=== PATIENT | female | born 1965 | race Caucasian/White ===

== ENCOUNTER 2016-08-22 14:58 | Emergency (ER) | payer MEDICAID ==
[~2016-08-22] VITALS: Ht 157.5 cm; Wt 84.5 kg
[2016-08-22 15:16] VITALS: BP 130/60
--- NOTE | 2016-08-22 18:25 | NUR ---
Patient ambulated to bed 4.
--- NOTE | 2016-08-22 18:26 | NUR ---
PATIENT PRESENTS TO ED WITH C/O LEFT FLANK PAIN RADIATING UP TO LEFT FLANK X 2 WKS CRAMPING TYPE PAIN-- TAKING IBUPROFEN BUT PAIN WORSENING---DENIES DYSURIA-AMBULATORY WITH A SLOW STEADY GAIT.HX---ANEMIA DENIES N/V/D; SKIN IS PINK/WARM/DRY; AAOX4 WITH EVEN AND STEADY GAIT; LUNGS CLEAR BL; HR EVEN AND REGULAR; PT DENIES ANY FEVER, CP, SOB, OR COUGH AT THIS TIME; PATIENT STATES PAIN OF 7/10 AT THIS TIME; PATIENT POSITIONED FOR COMFORT; HOB ELEVATED; BEDRAILS UP X2; BED DOWN. ER MD MADE AWARE OF PT STATUS.
--- NOTE | 2016-08-22 18:30 | NUR ---
PT CRISTOBAL, ONGOING WITH HER PERIODS AT THIS TIME.
--- NOTE | 2016-08-22 18:39 | NUR ---
DR. MCGEE AT BEDSIDE
[2016-08-22] MEDS ORDERED: KETOROLAC 60 MG/2 ML VIAL IM ONE (18:45)
--- NOTE | 2016-08-22 19:09 | NUR ---
REPORT GIVEN TO CLARA
--- NOTE | 2016-08-22 19:10 | NUR ---
RECEIVED REPORT FROM GREYSON EDOUARD. PT IS RESTING, NO SIGNS OF DISTRESS ON BED. PT DENIES ANY PAIN AT THIS TIME.
[2016-08-22 19:45] VITALS: BP 116/83
--- NOTE | 2016-08-22 19:45 | NUR ---
Patient discharged with v/s stable. Written and verbal after care instructions given and explained. Patient alert, oriented and verbalized understanding of instructions. Ambulatory with steady gait. All questions addressed prior to discharge. ID band removed. Patient advised to follow up with PMD. Rx of TRAMADOL HYDROCHLORIDE 50MG TAB 1 TAB EVERY 6 HOURS BY MOUTH NEEDED given. Patient educated on indication of medication including possible reaction and side effects. Opportunity to ask questions provided and answered.
== END 2016-08-22 19:45 | disposition home or self-care (01) ==
LOC: MED 14:58
DX: S39.012A Strain of muscle, fascia and tendon of lower back, initial encounter (principal); S29.012A Strain of muscle and tendon of back wall of thorax, initial encounter; R03.0 Elevated blood-pressure reading, without diagnosis of hypertension; D64.9 Anemia, unspecified; X58.XXXA Exposure to other specified factors, initial encounter; Y93.89 Activity, other specified; Y92.89 Other specified places as the place of occurrence of the external cause; Y99.8 Other external cause status
CPT/HCPCS: 74176; 81002; 81025; 96372; 99284; J1885

== ENCOUNTER 2017-03-01 18:52 | Emergency (ER) | payer MEDICAID ==
[~2017-03-01] VITALS: Ht 157.5 cm; Wt 86.2 kg
[2017-03-01 18:58] VITALS: BP 133/72
--- NOTE | 2017-03-01 20:46 | NUR ---
PT TAKEN TO BED 8.
--- NOTE | 2017-03-01 20:50 | NUR ---
51/F CAME IN W C/O 11/13 SORE THROAT, ACUTE ONSET X LAST NIGHT. PT REPORTS SHE HAD RUNNY NOSE, WATERY EYES, ITCHY THROAT YESTERDAY AND TOOK KINZA-D OTC WITH MINIMAL RELIEF OF SYMPTOMS. DENIES N/V/D, FEVER. NO RESPIRATORY DISTRESS NOTED AT THIS TIME, 18RR EVEN AND UNLABORED, LUNG SOUNDS CBTA. HX: ANEMIA, NO RX.
--- NOTE | 2017-03-01 21:31 | NUR ---
Patient being evaluated by Dr. Sheldon at bedside.
[2017-03-01] MEDS ORDERED: PENICILLIN G BENZATHINE L-A 0.6 MU/ML SYR IM ONE (21:35)
[2017-03-01] MEDS ORDERED: KETOROLAC 60 MG/2 ML VIAL IM ONE (21:35)
[2017-03-01 22:29] VITALS: BP 131/80
--- NOTE | 2017-03-01 22:30 | NUR ---
Patient discharged with v/s stable. Written and verbal after care instructions given and explained. Patient alert, oriented and verbalized understanding of instructions. Ambulatory with steady gait. All questions addressed prior to discharge. ID band removed. Patient advised to follow up with PMD. Rx of MOTRIN 800MG ONE TAB 3 TIMES A DAY, PREDNISONE 20MG, 3 TABS ONCE A DAY (IN THE AM)PO X 5DAYS given. Patient educated on indication of medication including possible reaction and side effects. Opportunity to ask questions provided and answered.
== END 2017-03-01 22:30 | disposition home or self-care (01) ==
LOC: MED 18:52
DX: J02.9 Acute pharyngitis, unspecified (principal)
CPT/HCPCS: 96372; 99284; J0561; J1885

== ENCOUNTER 2018-11-08 10:37 | Emergency (ER) | payer MEDICAID ==
[~2018-11-08] VITALS: Ht 165.1 cm; Wt 84.4 kg
[2018-11-08 10:44] VITALS: BP 128/91
--- NOTE | 2018-11-08 10:49 | NUR ---
PT AMB TO BED 1 WITH STEADY GAIT
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
[2018-11-08] MEDS ORDERED: IBUPROFEN 800 MG TAB PO ONE (12:00)
[2018-11-08 13:13] VITALS: BP 119/76
== END 2018-11-08 13:12 | disposition home or self-care (01) ==
LOC: MED 10:37
DX: S63.613A Unspecified sprain of left middle finger, initial encounter (principal); M77.12 Lateral epicondylitis, left elbow; Z98.890 Other specified postprocedural states; X58.XXXA Exposure to other specified factors, initial encounter; Y93.89 Activity, other specified; Y92.89 Other specified places as the place of occurrence of the external cause; Y99.8 Other external cause status
CPT/HCPCS: 73080; 73130; 99283

== ENCOUNTER 2019-02-10 13:35 | Emergency (ER) | payer MEDICAID ==
[~2019-02-10] VITALS: Ht 152.4 cm; Wt 86.2 kg
[2019-02-10 13:43] VITALS: BP 142/80
--- NOTE | 2019-02-10 14:10 | NUR ---
C/O PAINFUL RASH TO L SIDE UNDERARM/BREAST AREA 11/13 AND STINGING X 3 DAYS. PAINFUL TO TOUCH PER PT. DR. GARCIA EVALUATING PT AT THIS TIME.
[2019-02-10 14:30] VITALS: BP 142/80
--- NOTE | 2019-02-10 14:30 | NUR ---
Patient discharged with v/s stable. Written and verbal after care instructions given and explained. Patient alert, oriented and verbalized understanding of instructions. Ambulatory with steady gait. All questions addressed prior to discharge. ID band removed. Patient advised to follow up with PMD. Rx of ACYCLOVIR, MEDROL, GABAPENTIN given. Patient educated on indication of medication including possible reaction and side effects. Opportunity to ask questions provided and answered.
== END 2019-02-10 14:30 | disposition home or self-care (01) ==
LOC: MED 13:35
DX: B02.9 Zoster without complications (principal); R03.0 Elevated blood-pressure reading, without diagnosis of hypertension
CPT/HCPCS: 99283

== ENCOUNTER 2019-04-22 02:59 | Emergency (ER) | payer OTHER, MEDICAID ==
[~2019-04-22] VITALS: Ht 154.9 cm; Wt 87.5 kg
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
--- NOTE | 2019-04-22 03:08 | NUR ---
LAST TAKEN IBUPROFEN WAS 2245 LAST NIGHT.
[2019-04-22 03:13] VITALS: BP 152/86
--- NOTE | 2019-04-22 03:24 | NUR ---
AT BEDSIDE TO SERENA SARGENT
[2019-04-22] MEDS ORDERED: KETOROLAC 30 MG/ML VIAL IM ONE (03:35)
--- NOTE | 2019-04-22 03:57 | NUR ---
pt transfer to via wheelchair.
--- NOTE | 2019-04-22 04:06 | NUR ---
pt returned back from xr via wheelchair.
[2019-04-22 04:50] VITALS: BP 145/83
== END 2019-04-22 04:50 | disposition home or self-care (01) ==
LOC: MED 02:59
DX: S13.9XXA Sprain of joints and ligaments of unspecified parts of neck, initial encounter (principal); R07.89 Other chest pain; V49.60XA Unspecified car occupant injured in collision with unspecified motor vehicles in traffic accident, initial encounter; Y93.89 Activity, other specified; Y92.89 Other specified places as the place of occurrence of the external cause; Y99.8 Other external cause status; Z98.41 Cataract extraction status, right eye
CPT/HCPCS: 71045; 72040; 96372; 99283; J1885

== ENCOUNTER 2019-06-26 11:19 | Emergency (ER) | payer MEDICAID ==
[~2019-06-26] VITALS: Ht 160 cm; Wt 85.7 kg
[2019-06-26 11:36] VITALS: BP 122/79
--- NOTE | 2019-06-26 11:38 | NUR ---
PT TO ER LOBBY, AMBULATES, ALERT AND AWAKE
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
[2019-06-26 14:18] VITALS: BP 122/79
== END 2019-06-26 14:19 | disposition home or self-care (01) ==
LOC: MED 11:19
DX: S82.892A Other fracture of left lower leg, initial encounter for closed fracture (principal); X50.9XXA Other and unspecified overexertion or strenuous movements or postures, initial encounter; Y93.89 Activity, other specified; Y92.89 Other specified places as the place of occurrence of the external cause; Y99.8 Other external cause status
CPT/HCPCS: 29515; 73610; 99283

== ENCOUNTER 2019-06-29 08:01 | Emergency (ER) | payer MEDICAID ==
[~2019-06-29] VITALS: Ht 154.9 cm; Wt 85.7 kg
[2019-06-29 08:12] VITALS: BP 115/51
--- NOTE | 2019-06-29 08:13 | NUR ---
PT AMB WITH CRUTCHES TO BED 12.
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
[2019-06-29 08:47] VITALS: BP 115/51
--- NOTE | 2019-06-29 08:47 | NUR ---
applied posterior short leg splint to left foot without any issues
--- NOTE | 2019-06-29 08:47 | NUR ---
POSTERIOR SHORT LEG SPLINT REAPPLIED BY NICHELLE MERA. [facility] INTACT PRIOR TO SPLINT. [facility] INTACT POST SPLINT.
--- NOTE | 2019-06-29 08:47 | NUR ---
Patient discharged with v/s stable. Written and verbal after care instructions given and explained. Patient verbalized understanding. Ambulatory with steady gait. All questions addressed prior to discharge. Advised to follow up with PMD.
== END 2019-06-29 08:47 | disposition home or self-care (01) ==
LOC: MED 08:01
DX: S82.892G Other fracture of left lower leg, subsequent encounter for closed fracture with delayed healing (principal); X58.XXXD Exposure to other specified factors, subsequent encounter; Z46.89 Encounter for fitting and adjustment of other specified devices
CPT/HCPCS: 29515; 99283

== ENCOUNTER 2021-10-05 12:48 | Emergency (ER) | payer MEDICAID ==
[~2021-10-05] VITALS: Ht 157.5 cm; Wt 90.9 kg
[2021-10-05 12:52] VITALS: BP 136/83
[2021-10-05] MEDS ORDERED: IBUPROFEN 600 MG TAB PO ONE (13:45)
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
[2021-10-05] MEDS ORDERED: IBUP-2213 PO (15:05)
--- NOTE | 2021-10-05 15:35 | NUR ---
Patient discharged with v/s stable. Written and verbal after care instructions ABOUT CONTUSION given and explained. Patient alert, oriented and verbalized understanding of instructions. Ambulatory with steady gait WITH CRUTCHES. All questions addressed prior to discharge. ID band removed. Patient advised to follow up with PMD. Rx of IBUPROFEN given. Patient educated on indication of medication including possible reaction and side effects. Opportunity to ask questions provided and answered.
== END 2021-10-05 15:35 | disposition home or self-care (01) ==
LOC: MED 12:48
DX: S80.02XA Contusion of left knee, initial encounter (principal); S80.01XA Contusion of right knee, initial encounter; W18.30XA Fall on same level, unspecified, initial encounter; Y93.89 Activity, other specified; Y92.89 Other specified places as the place of occurrence of the external cause; Y99.8 Other external cause status
CPT/HCPCS: 73562; 99283; Q0092

== ENCOUNTER 2023-02-19 11:22 | Emergency (ER) | payer MEDICAID ==
[~2023-02-19] VITALS: Ht 154.9 cm; Wt 89.4 kg
[~2023-02-19 11:22] MED LIST: IBUP-2213 PO
[2023-02-19 11:31] VITALS: BP 139/79; PULSE 82; RESP 16; TEMP 97.8; O2SAT 97
[2023-02-19] MEDS ORDERED: CYCL-711 PO (12:41)
[2023-02-19] MEDS ORDERED: LID5T TP (12:41)
[2023-02-19] MEDS ORDERED: NAPR-54 PO (12:41)
[2023-02-19 12:52] VITALS: BP 139/79; PULSE 82; RESP 16; TEMP 97.8; O2SAT 97
== END 2023-02-19 12:53 | disposition home or self-care (01) ==
LOC: MED 11:22
DX: S16.1XXA Strain of muscle, fascia and tendon at neck level, initial encounter (principal); R03.0 Elevated blood-pressure reading, without diagnosis of hypertension; Z79.899 Other long term (current) drug therapy; Z79.1 Long term (current) use of non-steroidal anti-inflammatories (NSAID); Z88.5 Allergy status to narcotic agent; V49.49XA Driver injured in collision with other motor vehicles in traffic accident, initial encounter; Y93.89 Activity, other specified; Y92.410 Unspecified street and highway as the place of occurrence of the external cause; Y99.8 Other external cause status
CPT/HCPCS: 99283